=== PATIENT | female | born 1990 | race Caucasian/White ===

== ENCOUNTER 2017-02-27 05:03 | Inpatient (IN) | payer OTHER ==
--- OUTSIDE RECORDS SUMMARY | 2017-02-27 05:07 | XMS REPORT | Continuity of Care Document ---
:1990 Author Organization [facility] ([facility]) Address [address] [place] [address] Phone [phone] Care Team Providers Name Role Phone Juanjo Ashby Primary Care Provider [phone] Source Comments This disclosure is being made pursuant to the Care Everywhere program, applicable federal and state laws, and may not contain all informaitonavailable regarding this patient.[facility] ([facility]) Active Allergies and Adverse Reactions No Known Allergies Current Medications Prescription Sig. Disp. Refills Start Date End Date Status VIT W-CA,FE,FA(<1 MG) Active ( VITAMIN PO) Active Problems Problem Noted Date Undiagnosed cardiac murmurs 09/02/2006 Chest pain, unspecified 09/02/2006 Social History Tobacco Use Types Packs/Day Years Used Date Current Every Day Smoker Cigarettes 0.5 Alcohol Use Drinks/Week oz/Week Comments No 0 Standard drinks or equivalent 0.0 Last Filed Vital Signs Vital Sign Reading Time Taken Blood Pressure 134/70 10/04/2015 1:40 PM LPN Pulse 103 10/04/2015 1:40 PM LPN Temperature 37 C (98.6 F) 10/04/2015 1:39 PM LPN Respiratory Rate 24 09/03/2006 9:15 AM LPN Height 1.66 m (5' 5.35") 10/04/2015 1:39 PM LPN Weight 74.2 kg (163 lb 9.3 oz) 10/04/2015 1:39 PM LPN Body Mass Index 26.93 10/04/2015 1:39 PM LPN Oxygen Saturation - - Plan of Care Health Maintenance Due Date Last Done Comments Hepatitis B Vaccine (1 of 3 - Primary Series) 1992 HPV Vaccine (1 of 3 - Female/Unknown 3 Dose Series) 2003 Tdap Vaccine 2003 Cervical Cancer Screening 2010 Lipid Disorder Screening 2010 MMR Vaccine 2010 Td Vaccine 2010 Varicella Vaccine (1 of 2 - Adult - No Evidence of 2010 Immunity) Pneumococcal Vaccine (1 of 1 - PPSV23) 2011 Influenza Vaccine: Seasonal (#1) 05/27/2016 Results from Last 3 Months Not on file
[2017-02-27] MEDS ORDERED: ceFAZolin SODIUM/DEXTROSE,ISO 2 GM/50 ML BAG IV ONE ×2 (05:32→07:30)
[2017-02-27 05:54] LABS: Cocaine Ur Negative (NEGATIVE); Urine Barbiturate Negative (NEGATIVE); Urine Benzodiazepines Negative (NEGATIVE); Urine Opiates Negative (NEGATIVE); Urine PCP Negative (NEGATIVE); Urine THC Negative (NEGATIVE)
[2017-02-27 05:54] LABS: Hemoglobin 12.1 gm/dL (12.5-16.0); Mean Cell Volume 91.4 fl (78-100); Mean Corpuscular Hemoglobin 31.6 pg (27-31); Mean Corpuscular Hgb Conc 34.6 g/dl (32-36); Mean Platelet Volume 9.5 fl (6.0-9.5); Neutrophil % 57.4 % (42-75.0); Platelet Count 332 K/mm3 (150-450); Red Blood Count 3.83 M/mm3 (4.2-5.4); Red Cell Distribution Width 13.2 % (11.5-14.0); White Blood Count 12.2 K/mm3 (4.0-10.5)
[2017-02-27] MEDS: RINGERS SOLUTION,LACTATED 1,000 ML IV PRN ×3 (06:27→08:10)
[2017-02-27] MEDS ORDERED: OXYTOCIN 20 UNITS in RINGERS SOLUTION,LACTATED 1,000 ML IV ONE (07:24)
[2017-02-27] MEDS ORDERED: ceFAZolin SODIUM 1 GM VIAL IV ONE (08:10)
[2017-02-27] MEDS ORDERED: HYDROcodone/ACETAMINOPHEN 1 EACH TABLET PO PRN (09:18)
[2017-02-27] MEDS ORDERED: SENNOSIDES 8.6 MG TABLET PO PRN (09:18)
[2017-02-27] MEDS ORDERED: BISACODYL 10 MG SUPP.RECT RC PRN (09:18)
[2017-02-27] MEDS ORDERED: SIMETHICONE 80 MG TAB.CHEW PO PRN (09:18)
[2017-02-27] MEDS ORDERED: KETOROLAC TROMETHAMINE 30 MG/ML VIAL IV PRN (09:18)
[2017-02-27] MEDS ORDERED: ONDANSETRON HCL/PF 2 MG/ML VIAL IV PRN (09:18)
[2017-02-27] MEDS ORDERED: diphenhydrAMINE HCL 25 MG CAPSULE PO PRN (09:18)
--- NOTE | 2017-02-27 09:27 | OR ---
Operative Report - Dictated Report Narrative: DATE OF PROCEDURE: 02/27/2017 PROCEDURE: 1. Repeat low transverse section ANESTHESIA: Spinal. PREOPERATIVE DIAGNOSES: 1. Intrauterine at 40 1/7 weeks 2. Previous c-sections x 2 3. Late care 4. Recent MRSA right buttock abscess, healed. POSTOPERATIVE DIAGNOSES: 1. Intrauterine at 40 1/7 weeks 2. Previous c-sections x 2 3. Late care 4. Recent MRSA right buttock abscess, healed. 5. Suspected SROM with low amniotic fluid prior to delivery SURGEON: Jackson Hammond M.D. CHILDREN'S NURSERY ASSISTANT: Simin Deluna FINDINGS: 1. female in cephalic presentation. minimal amniotic fluid with meconium. Weight 2893 g, 8/9, Time of delivery: 08:33 2. Placenta with yellowish membrane and adherent to uterus suggesting possible infection, and possible rupture of membrane prior to delivery 3. Normal uterus, and normal bilateral ovaries and tubes SPECIMENS: placenta to pathology DRAIN: Bermudez to gravity. URINE OUTPUT: 50 ml. BLOOD LOSS: 200 ml. IV FLUIDS: 1300 ml COMPLICATIONS: None. Description of Operative Procedure: The patient consented prior to the operation and was taken to the operating room. Spinal anesthesia was performed without complications. The patient was then placed in the dorsal supine position with leftward tilt. Sequential compression device was placed on the lower extremities and a Bermudez catheter was placed into the bladder using sterile technique. Two grams of Ancef was given prior to the start of anesthesia. The abdomen was prepped with Chloraprep x 2 and draped in the usual sterile fashion. A time-out was conducted to confirm the correct patient for the correct procedure. Anesthesia was tested and appeared adequate. Her previous Pfannenstiel incision scar was marked and then removed with a scalpel. The incision was carried through the subcutaneous layer to the fascia. The fascia was nicked at the midline and extended bilaterally with Nolasco scissors. The lower edge of the fascia incision was grasped with Emely clamps , elevated, and the underlying rectus muscles and pyramidalis muscles were dissected off. The Emely clamps were repositioned to the upper edge of the fascia incision, which was tented up and dissected off from the rectus muscles. The rectus muscles were in the midline. The peritoneum was elevated and entered sharply with a Scalpel. The peritoneal incision was extended superiorly and inferiorly with good visualization of the bladder. A bladder blade was inserted. The vesicouterine peritoneum was identified, grasped with a smooth pick-ups, and entered sharply with Matzenbaum scissors. The incision was extended laterally, and a bladder flap was created. The bladder blade was repositioned. The lower uterine segment was incised in a transverse fashion with the scalpel, and the incision was extended laterally by stretching. The bladder blade was removed. The amniotic sac was ruptured with minimal yellow fluid. The baby was in cephalic presentation. The head was elevated through the incision. Fundal pressure was applied and the baby was delivered atraumatically. Baby cried immediately after . The mouth and nose were suctioned and the cord was clamped and cut. The was handed off to the job putter up and ticket preparer/nurse in attendance. Cord blood was obtained. The placenta was removed manually. The uterus was then exteriorized, and cleared off clots and membrane. The uterine incision was closed with 0 vicryl in a running-lock fashion. A second imbricating layer was placed with 2-0 Vicryl in a continuous non-lock fashion. Good hemostasis and reapproximation were obtained. The posterior cul-de-sac was cleared off clots and fluid. The uterus was returned to the abdomen. The gutters were cleared of blood clots and fluid. The peritoneum was closed with 2-0 Vicryl. The rectus muscle was inspected for bleeders and none was found. The fascia was reapproximated with #1 Vicryl in running fashion. The subcutaneous layer was irrigated with saline. The subcutaneous adipose layer was closed with 2-0 vicryl interruptedly. The skin was closed with 3-0 Monocryl suture in a subcuticular fashion. Steri strips were applied to incision. Pressure dressing with Telfa and ABD was placed over the incision. The patient tolerated the procedure well. The patient received an abdominal tap block under u/s guidance for postop pain management. Sponge, lap, needle and instrument counts were correct.The patient was taken to the recovery room in stable condition. Jackson Hammond MD History for MU Definition: * The number of deliveries resulting in a live the patient experienced prior to current hospitalization * The previous delivery of live twins or any live multiple gestation is considered one live event. *If primagravida or nulliparous is documented select zero for the number of previous live births. Live Events: 2
[2017-02-27] MEDS: IBUPROFEN 800 MG TABLET PO PRN ×2 (11:07→17:06)
[2017-02-27] MEDS: HYDROcodone/ACETAMINOPHEN 1 EACH TABLET PO PRN (11:07)
[2017-02-27] MEDS: DOCUSATE SODIUM 100 MG CAPSULE PO SCH (21:03)
[2017-02-28 05:40] LABS: Hematocrit 34.7 % (37.0-47.0); Hemoglobin 11.7 gm/dL (12.5-16.0); Mean Corpuscular Hgb Conc 33.7 g/dl (32-36); Mean Platelet Volume 9.3 fl (6.0-9.5); Neutrophil # 9.1 K/mm3 (1.3-6.0); Neutrophil % 63.8 % (42-75.0); Platelet Count 295 K/mm3 (150-450); Red Blood Count 3.77 M/mm3 (4.2-5.4); Red Cell Distribution Width 13.1 % (11.5-14.0); White Blood Count 14.3 K/mm3 (4.0-10.5)
[2017-02-28] MEDS: IBUPROFEN 800 MG TABLET PO PRN ×2 (07:10→13:37)
[2017-02-28] MEDS: HYDROcodone/ACETAMINOPHEN 1 EACH TABLET PO PRN ×2 (07:10→13:37)
--- NOTE | 2017-02-28 10:32 | PN ---
Subjective - Date and Time Seen Date: 02/28/17 Subjective Narrative: Post op day 1, s/p repeat c/s. doing well. Bermudez out. took a shower today. pain controlled. normal lochia. ambulating well. Objective - Vitals Vitals: Last Vital Signs Temp 37.0 C 02/27/17 19:00 Pulse 83 02/27/17 19:00 Resp 18 02/27/17 19:00 BP 123/67 02/27/17 19:00 Pulse Ox 97 02/27/17 19:00 - Abnormal Lab Findings Abnormal Lab Findings: Abnormal Lab Results 02/28/17 Range/Units 05:31 WBC 14.3 H (4.0-10.5) K/mm3 RBC 3.77 L (4.2-5.4) M/mm3 Hgb 11.7 L (12.5-16.0) gm/dL Hct 34.7 L (37.0-47.0) % Immature Gran # (Auto) 0.06 H (0.000-0.0310) K/mm3 Neutrophils # 9.1 H (1.3-6.0) K/mm3 Lymphocytes # 3.7 H (1.5-3.5) k/mm3 Monocytes # 1.1 H (0.0-1.0) k/mm3 - Exam Constitutional: Present: Alert, Oriented x3, Cooperative Respiratory: Present: no respiratory distress Cardiovascular/Chest: Present: normal peripheral pulses Abdomen: Present: soft, nondistended, other - fundus below umbilicus. Incision dry and clean Extremity: Present: normal range of motion, no pedal edema, no calf tenderness Skin Exam: Present: normal color, warm/dry, no cyanosis Cauti Physician Documentation - Urinary Catheter Management Urethral (Bermudez) Date of Insertion: 02/27/17 Time of Insertion: 08:10 Date of Removal: 02/27/17 Time of Removal: 21:00 Assessment/Plan Plan Narrative: A: POD#1, s/p repeat c/s, stable and well Plan: routine post op care. ambulation encouraged. Jackson Hammond MD
[2017-02-28] MEDS: DOCUSATE SODIUM 100 MG CAPSULE PO SCH ×2 (13:36→21:46)
[2017-03-01] MEDS: IBUPROFEN 800 MG TABLET PO PRN ×2 (07:24→20:20)
[2017-03-01] MEDS: HYDROcodone/ACETAMINOPHEN 1 EACH TABLET PO PRN (07:24)
[2017-03-01] MEDS: DOCUSATE SODIUM 100 MG CAPSULE PO SCH ×3 (07:24→20:21)
--- NOTE | 2017-03-01 10:07 | PN ---
Subjective - Date and Time Seen Date: 03/01/17 Time: 10:05 Subjective Narrative: no complaints. Pain controlled, voiding ,ambulating, tolerating regular diet, lochia small.Bottlefeeding Objective - Review of Systems Generalized/Overall Review: Reports: No Symptoms Reported Respiratory: Reports: No Symptoms Reported Abdominal: Reports: No Symptoms Reported Genitourinary Symptoms: Reports: No Symptoms Reported Musculoskeletal Complaints: Reports: No Symptoms Reported Endocrine: Reports: No Symptoms Reported - Vitals Vitals: Last Vital Signs Temp 36.7 C 03/01/17 07:00 Pulse 85 03/01/17 07:00 Resp 20 03/01/17 07:00 BP 145/62 03/01/17 07:00 Pulse Ox 97 03/01/17 07:00 - Exam Exam Narrative: fundus firm, below umbilicus, incision dry, intact, no redness or induration Constitutional: Present: Alert, Oriented x3, Cooperative, No distress Respiratory: Present: lungs clear Abdomen: Present: Normal bowel sounds, soft, nondistended Skin Exam: Present: normal color, warm/dry Cauti Physician Documentation - Urinary Catheter Management Urethral (Bermudez) Urethral Indwelling: No Date of Insertion: 02/27/17 Time of Insertion: 08:10 Date of Removal: 02/27/17 Time of Removal: 21:00 Assessment/Plan Plan Narrative: doing well POD#2 s/p repeat . Continue routine care.Advised on tight bra and no stimulation to breasts. - Problems/Diagnosis (1) Status post repeat low transverse section Problem: Acute
--- NOTE | 2017-03-02 09:25 | DS ---
(1) Status post repeat low transverse section Problem: Acute Description of Stay: Patient underwent repeat low cervical transverse on 02/27/[address] Hammond under spinal anesthesia with delivery of a viable female infant weight of 6lb 6oz, apgars of 8 and 9.Postop the patient did well. She remained afebrile and was advanced on diet and activity. At the time of discharge she is ambulating, voiding, caring for herself, pain is controlled. Incision is dry and intact. She is bottlefeeding. Procedures Performed: see notes below - repeat low cervical transverse section, spinal anesthesia List Procedures: Repeat low cervical transverse , spinal anesthesia. Results and Findings: viable 6lb 6oz female , apgars 8 and9 Discharge Disposition: Home self care - f/u office one week incision check and 6 weeks appt.vaginal rest for 6 weeks. No lifting heavier than baby for 6 weeks. Tight bra and avoid stimulation to breasts. call if fever > 100.4, severe pain, heavy bleeding or redness and drainage of incision. Disposition: Home self-care Condition: Good Discharge Activity: No Lifting Discharge Diet: General/regular food Problem Oriented Discharge Instructions to Patient/Family: Well Custom Applicator - , Delivery, Care After Additional Patient Instructions (free text): Domitila will follow up FridayMarch 05 at 1015 AM and a 6 week follow up on FridayApril 11 at 1000 Domitila continue to take your vitamins daily. Rest when your baby rests. Drink plenty of fluids, eat lots of vegetable, fruit and lean meat. Angela will be following up in office on - PLEASE CALL OFFICE ON FRIDAY TO MAKE A FOLLOW UP VISIT. Angela weight today is 6 pounds 8.7 ounces Angela has passed her hearing screen in both ears and her CHD, her Metabolic Screen has been drawn. Angela blood type is A negative. Feed your baby every 3-[address] your baby on her back to sleep, in her own bed. [facility] you [facility] your [facility]. I have enjoyed caring for you and your baby. If you have any concerns or questions please call the [facility] [phone]. [facility] [phone] or PEDS [phone]. Congratulation Domitila on the new addition to your family. Prescriptions (Any new or edited meds): HYDROcodone/ACETAMINOPHEN [[place] 5-325] 2 each PO Q6H PRN #30 tablet PRN Reason: Severe Pain Complete Home Medications List: Complete Home Medication List: Vit#96/Ferrous Fum/FA [ S] 1 tab PO DAILY 01/18/16 HYDROcodone/ACETAMINOPHEN [[place] 5-325] 2 each PO Q6H PRN #30 tablet 03/02/17
[2017-03-02 10:37] VITALS: BP 118/79
[2017-03-02] MEDS: HYDROcodone/ACETAMINOPHEN 1 EACH TABLET PO PRN (12:41)
[2017-03-02] MEDS: IBUPROFEN 800 MG TABLET PO PRN (12:41)
== END 2017-03-02 13:16 | disposition home or self-care (01) | DRG 766 ==
LOC: MS 05:03
PROVIDERS: ADMIT Obstetrics & Gynecology; ATTEND Obstetrics & Gynecology
PROC: 4A1HXCZ Monitoring of Products of Conception, Cardiac Rate, External Approach (ICD-10-PCS; 2017-02-27)
PROC: 10D00Z1 Extraction of Products of Conception, Low, Open Approach (ICD-10-PCS; principal; 2017-02-27 08:00)
DX: O99.824 Streptococcus B carrier state complicating childbirth (principal); O99.334 Smoking (tobacco) complicating childbirth; O34.211 Maternal care for low transverse scar from previous cesarean delivery; Z86.14 Personal history of Methicillin resistant Staphylococcus aureus infection; Z3A.40 40 weeks gestation of pregnancy; Z37.0 Single live birth